=== PATIENT | male | born 1965 | race American Indian/Alaskan Native ===

== ENCOUNTER 2017-11-01 08:37 | Emergency (ER) | payer OTHER ==
[2017-11-01 08:41] VITALS: BMI 36.0
[2017-11-01] MEDS ORDERED: Naproxen 550 mg Tab PO STA (09:12)
[2017-11-01] MEDS ORDERED: Naproxen 550 mg Tab PO ONE (09:26)
--- NOTE | 2017-11-01 09:38 | C.PDOC ---
History Of Present Illness 52 year old male presents to the ED complaining of right elbow pain for the past 3 days. Pain is worse with extension and pronation/supination of the elbow. Patient denies any specific injury but states he lifts weights and practices martial arts regularly. Patient also denies any associated changes in sensation, fever, or rashes. Time Seen by Provider: 11/01/17 09:05 Chief Complaint (Nursing): Lower Extremity Problem/Injury History Per: Patient History/Exam Limitations: no limitations Onset/Duration Of Symptoms: Days Current Symptoms Are (Timing): Still Present Severity: Mild Past Medical History Reviewed: Historical Data, Nursing Documentation, Vital Signs Vital Signs: Last Vital Signs Temp 97.4 F L 11/01/17 09:56 Pulse 58 L 11/01/17 09:56 Resp 20 11/01/17 09:56 BP 117/78 11/01/17 09:56 Pulse Ox 97 11/01/17 11:19 - Medical History PMH: Back Problems Surgical History: No Surg Hx Family History: States: No Known Family Hx - Social History Hx Tobacco Use: No Hx Alcohol Use: Yes Hx Substance Use: No - Immunization History Hx Tetanus Toxoid Vaccination: Yes Hx Influenza Vaccination: No Hx Pneumococcal Vaccination: No Review Of Systems Constitutional: Negative for: Fever, Chills Musculoskeletal: Positive for: Arm Pain (right elbow) Skin: Negative for: Rash Neurological: Negative for: Weakness, Numbness Physical Exam - Physical Exam Appears: Well, Non-toxic, No Acute Distress Skin: Warm, Dry, No Rash, No Ecchymosis Eye(s): bilateral: Normal Inspection Oral Mucosa: Moist Neck: Supple Cardiovascular: Rhythm Regular Respiratory: Normal Breath Sounds, No Rales, No Rhonchi, No Wheezing Extremity: Normal ROM (intact ROM of R elbow), No Tenderness (but patient notes worsening pain on flexion, extension, and supination), Capillary Refill (<2 sec all digits), No Deformity, No Swelling, No Other (erythema or warmth) Pulses: Left Radial: Normal, Right Radial: Normal Neurological/Psych: Oriented x3, Normal Sensation Gait: Steady ED Course And Treatment O2 Sat by Pulse Oximetry: 97 (RA) Pulse Ox Interpretation: Normal - Other Rad right elbow Xray X-Ray: Interpreted by Me, Viewed By Me (arthritic changes, calcific tendonitis, no fx/dislocation, no posterior fat pad) Progress Note: X-ray of the right elbow ordered and reviewed - shows calcific tendonitis of the elbow. YOHAN wrap applied to elbow by ED nurse. Patient given PO Naprosyn in ED. He was instructed to follow up with orthopedics within 1 week, and to not take Naprosyn in conjunction with his current NSAID. Patient understands he should return to ED if symptoms worsen. Reassessment Condition: Improved Disposition Counseled Patient/Family Regarding: Studies Performed, Diagnosis, Need For Followup, Rx Given - Disposition Referrals: Sylvester Freeman III, MD [Staff Provider] - [facility] [Outside] Disposition: HOME/ ROUTINE Disposition Time: 09:40 Condition: STABLE Additional Instructions: FOLLOW UP WITH ORTHOPEDICS WITHIN 1 WEEK REST THE ELBOW/ARM USE PAIN MEDICATION NEEDED RETURN TO ER IF SYMPTOMS WORSEN Prescriptions: Naproxen 375 mg PO BID PRN #20 tablet PRN Reason: pain Instructions: Tendonitis (DC) Forms: [employer] (Greenlandic) Print Language: EGYPTIAN - POA Present On Arrival: None - Clinical Impression Clinical Impression: Calcific tendinitis of right elbow, Arthritis - Scribe Statement The provider has reviewed the documentation as recorded by the Scribe (Ambar Bhandari) Provider Attestation: All medical record entries made by the Scribe were at my direction and personally dictated by me. I have reviewed the chart and agree that the record accurately reflects my personal performance of the history, physical exam, medical decision making, and the department course for this patient. I have also personally directed, reviewed, and agree with the discharge instructions and disposition.
[2017-11-01 09:56] VITALS: BP 117/78; PULSE 58; RESP 20; TEMP 97.4
[2017-11-01 11:15] VITALS: O2SAT 97
--- NOTE | 2017-11-01 11:24 | RAD ---
PROCEDURE: Radiographs of the right elbow. HISTORY: Right elbow pain COMPARISON: No prior. FINDINGS: BONES: Bone alignment and mineralization are normal. There is no acute displaced fracture or bone destruction. There is a prominent dorsal enthesophyte in the olecranon process. JOINTS: There is moderate degenerative osteoarthrosis with marginal osteophytes and reduced joint space. There is mild linear calcification lateral to the radial head. SOFT TISSUES: There is a small joint effusion. JOINT EFFUSION: None. OTHER FINDINGS: None. IMPRESSION: 1. No acute fracture or dislocation. 2. Dorsal enthesophyte in the olecranon process. 3. Moderate degenerative osteoarthrosis and small joint effusion.
== END 2017-11-01 09:57 | disposition home or self-care (01) ==
LOC: C.ER 08:37
DX: M65.28 Calcific tendinitis, other site (principal); M19.021 Primary osteoarthritis, right elbow